=== PATIENT | female | born 1955 | race Caucasian/White ===

== ENCOUNTER → 2017-03-11 16:14 | Outpatient (CLI) | payer OTHER ==
[~2017-03-11] VITALS: Ht 152.4 cm; Wt 99.3 kg
[~2017-03-11 16:14] MED LIST: AVANDIA4 MG PO; CATAFLAM50 MG PO; CIPRO HC OTIC S10 ML OT; CYMBALTA30 MG PO; CYMBALTA60 MG; DECADRON P4 MG/ML-1M IH; DEMEBORO OTIC DROPS OT; DICY20TA PO; DURICEF 500 MG CAPSULE PO; FLEXERIL 10MG PO; FLEXERIL10 MG PO; FLOXIN OT; GLUCOTROL10 MG PO; HUMALOG MI100 UNIT/2 SUBCUTANEO; HUMALOG MIX 75/10 ML SQ; HUMALOG100 U/ML SQ; METFORMIN HCL1000 MG; NEURONTIN300 MG PO; NEURONTIN600 MG PO; PENTOXIFYLLINE400 MG PO; PERCOCET 5-3251 EACH PO; PRINIVIL5 MG PO; TORADOL60 MG IM; TRAM1TAB PO; TRAM1TAB98 PO; VOLTAREM 50 MG PO; ZANTAC300 MG PO; ZOCOR40 MG PO
== END | disposition home or self-care (01) ==
LOC: PPHC 16:14
DX: K29.70 Gastritis, unspecified, without bleeding (principal); N23 Unspecified renal colic; N20.0 Calculus of kidney

== ENCOUNTER 2017-03-12 07:40 | Outpatient (CLI) | payer OTHER ==
[~2017-03-12 07:40] MED LIST changes: -PERCOCET 5-3251 EACH PO
[2017-03-13] MEDS ORDERED: PERCOCET 5-3251 EACH PO (13:04)
== END 2017-03-12 10:29 | disposition home or self-care (01) ==
LOC: LAB 07:40
DX: N20.0 Calculus of kidney (principal)

== ENCOUNTER 2017-03-12 07:42 | Outpatient (CLI) | payer OTHER ==
[2017-03-13] MEDS ORDERED: PERCOCET 5-3251 EACH PO (13:04)
== END 2017-03-12 10:32 | disposition home or self-care (01) ==
LOC: RAD 07:42
DX: N20.0 Calculus of kidney (principal)

== ENCOUNTER 2017-03-13 08:58 | Emergency (ER) | payer OTHER ==
[~2017-03-13] VITALS: Ht 162.6 cm; Wt 99.3 kg
[~2017-03-13 08:58] MED LIST changes: -PERCOCET 5-3251 EACH PO
[2017-03-13] MEDS ORDERED: PERCOCET 5-3251 EACH PO (13:04)
== END 2017-03-13 13:21 | disposition home or self-care (01) ==
LOC: ER 08:58
DX: N20.0 Calculus of kidney (principal); R10.32 Left lower quadrant pain

== ENCOUNTER → 2017-03-13 | Outpatient (CLI) | payer OTHER ==
[~2017-03-13] VITALS: Ht 152.4 cm; Wt 99.3 kg
[~2017-03-13] MED LIST changes: +PERCOCET 5-3251 EACH PO
== END | disposition home or self-care (01) ==
LOC: PPHC 07:35
DX: N20.1 Calculus of ureter (principal); N20.0 Calculus of kidney

== ENCOUNTER 2017-03-15 08:49 | Emergency (ER) | payer OTHER ==
[~2017-03-15] VITALS: Ht 162.6 cm; Wt 99.3 kg
[~2017-03-15 08:49] MED LIST changes: +PERCOCET 5-3251 EACH PO
== END 2017-03-15 14:11 | disposition home or self-care (01) ==
LOC: ER 08:49
DX: R10.32 Left lower quadrant pain (principal)

== ENCOUNTER → 2017-03-20 | Outpatient (CLI) | payer OTHER | END | disposition home or self-care (01) | LOC: MRI 12:21 | DX: M43.17 Spondylolisthesis, lumbosacral region (principal) | CPT/HCPCS: 72148 ==

== ENCOUNTER → 2017-03-21 | Outpatient (CLI) | payer OTHER ==
[~2017-03-21] VITALS: Ht 152.4 cm; Wt 99.3 kg
[~2017-03-21] MED LIST changes: +GABAPENTIN300 MG PO
== END | disposition home or self-care (01) ==
LOC: PPHC 09:10
DX: M54.5 Low back pain (principal)

== ENCOUNTER 2017-08-21 08:05 | Outpatient (CLI) | payer OTHER ==
[~2017-08-21 08:05] MED LIST changes: +GABAPENTIN600 MG PO; +LYRICA50 MG PO
== END 2017-08-21 08:40 | disposition home or self-care (01) ==
LOC: LAB 08:05
DX: E11.9 Type 2 diabetes mellitus without complications (principal); I10 Essential (primary) hypertension; Z11.3 Encounter for screening for infections with a predominantly sexual mode of transmission

== ENCOUNTER → 2018-11-03 | Outpatient (CLI) | payer OTHER | END | disposition home or self-care (01) | LOC: MRI 07:15 | DX: M25.512 Pain in left shoulder (principal); M25.511 Pain in right shoulder; M25.561 Pain in right knee; M54.5 Low back pain; N64.4 Mastodynia | CPT/HCPCS: 72141 ==

== ENCOUNTER → 2019-02-20 | Outpatient (CLI) | payer OTHER | END | disposition home or self-care (01) | LOC: RAD 08:10 | DX: M25.572 Pain in left ankle and joints of left foot (principal) ==

== ENCOUNTER 2019-03-09 06:51 | Emergency (ER) | payer OTHER ==
[~2019-03-09] VITALS: Ht 162.6 cm; Wt 99.3 kg
[2019-03-09] MEDS ORDERED: PEPCID AC20 MG PO (07:45)
[2019-03-09] MEDS ORDERED: KETO10TA2 PO (07:45)
== END 2019-03-09 11:01 | disposition home or self-care (01) ==
LOC: ER 06:51
DX: M54.5 Low back pain (principal)

== ENCOUNTER 2019-03-22 08:40 | Emergency (ER) | payer OTHER ==
[~2019-03-22] VITALS: Ht 157.5 cm; Wt 99.3 kg
[~2019-03-22 08:40] MED LIST changes: +KETO10TA2 PO; +PEPCID AC20 MG PO
== END 2019-03-22 09:53 | disposition home or self-care (01) ==
LOC: ER 08:40
DX: M54.5 Low back pain (principal); E11.40 Type 2 diabetes mellitus with diabetic neuropathy, unspecified

== ENCOUNTER 2019-06-25 10:30 | Outpatient (CLI) | payer OTHER | END 2019-06-25 12:21 | disposition home or self-care (01) | LOC: MRI 10:30 | DX: M25.561 Pain in right knee (principal) | CPT/HCPCS: 73721 ==

== ENCOUNTER 2019-09-28 08:40 | Outpatient (CLI) | payer OTHER | END 2019-09-28 08:46 | disposition home or self-care (01) | LOC: LAB 08:40 | PROVIDERS: ATTEND General Practice | DX: U07.1 COVID-19 (principal); J11.1 Influenza due to unidentified influenza virus with other respiratory manifestations; R51 Headache; Z20.828 Contact with and (suspected) exposure to other viral communicable diseases; Z11.59 Encounter for screening for other viral diseases; I10 Essential (primary) hypertension ==

== ENCOUNTER 2019-11-10 08:00 | Outpatient (CLI) | payer OTHER | END 2019-11-10 15:00 | disposition home or self-care (01) | LOC: PPH VACUNA 08:00 | DX: Z23 Encounter for immunization (principal) ==

== ENCOUNTER 2019-11-13 08:50 | Emergency (ER) | payer OTHER ==
[~2019-11-13] VITALS: Ht 162.6 cm; Wt 113.4 kg
[2019-11-13] MEDS ORDERED: ZESTRIL20 MG PO (08:57)
== END 2019-11-13 11:52 | disposition home or self-care (01) ==
LOC: ER 08:50
DX: B34.9 Viral infection, unspecified (principal); Z20.828 Contact with and (suspected) exposure to other viral communicable diseases

== ENCOUNTER 2019-12-31 13:09 | Emergency (ER) | payer OTHER ==
[~2019-12-31] VITALS: Ht 162.6 cm; Wt 106.6 kg
[~2019-12-31 13:09] MED LIST changes: +ZESTRIL20 MG PO
== END 2019-12-31 15:50 | disposition home or self-care (01) ==
LOC: ER 13:09
DX: E11.65 Type 2 diabetes mellitus with hyperglycemia (principal); Z20.828 Contact with and (suspected) exposure to other viral communicable diseases

== ENCOUNTER 2020-01-19 13:27 | Outpatient (CLI) | payer OTHER | END 2020-01-19 13:40 | disposition home or self-care (01) | LOC: MAMO-SONO 13:27 | PROVIDERS: ATTEND Radiology Diagnostic Radiology | DX: Z12.31 Encounter for screening mammogram for malignant neoplasm of breast (principal); N64.59 Other signs and symptoms in breast ==

== ENCOUNTER 2020-02-03 13:00 | Outpatient (CLI) | payer OTHER | END 2020-02-03 13:12 | disposition home or self-care (01) | LOC: NUCLEAR 13:00 | PROVIDERS: ATTEND Internal Medicine Cardiovascular Disease | DX: M81.0 Age-related osteoporosis without current pathological fracture (principal); E55.9 Vitamin D deficiency, unspecified ==

== ENCOUNTER 2020-02-08 07:55 | Outpatient (CLI) | payer OTHER | END 2020-02-08 08:00 | disposition home or self-care (01) | LOC: LAB 07:55 | PROVIDERS: ATTEND Internal Medicine Cardiovascular Disease | DX: I10 Essential (primary) hypertension (principal); E11.9 Type 2 diabetes mellitus without complications; E03.8 Other specified hypothyroidism; E78.2 Mixed hyperlipidemia; E55.9 Vitamin D deficiency, unspecified ==

== ENCOUNTER 2020-02-11 05:03 | Emergency (ER) | payer OTHER ==
[~2020-02-11] VITALS: Ht 157.5 cm; Wt 106.6 kg
[2020-02-11] MEDS ORDERED: TORADOL60 MG IM (07:28)
[2020-02-11] MEDS ORDERED: NORFLEX100MG PO (07:28)
[2020-02-11] MEDS ORDERED: MOBIC15 MG PO (07:28)
== END 2020-02-11 07:50 | disposition home or self-care (01) ==
LOC: ER 05:03
DX: M62.838 Other muscle spasm (principal); M54.5 Low back pain

== ENCOUNTER → 2020-05-30 09:08 | Outpatient (CLI) | payer OTHER ==
[~2020-05-30 09:08] MED LIST changes: +CYCLOBENZAPRINE10 MG PO; +DICLOFENAC POTA50 MG PO; +MOBIC15 MG PO; +NORFLEX100MG PO
== END | disposition home or self-care (01) ==
LOC: PPH VACUNA 09:08
DX: Z23 Encounter for immunization (principal)

== ENCOUNTER → 2020-09-28 | Emergency (ER) | payer OTHER ==
[~2020-09-28] VITALS: Ht 160 cm; Wt 106.6 kg
[~2020-09-28] MED LIST changes: +MORGIDOX100 MG PO; +MUPIROCIN22 GM TOP; +NABUMETONE750 MG PO; +TIZANIDINE HCL4 MG PO; +ZANAFLEX4 M1 PO
== END | disposition home or self-care (01) ==
LOC: ER 13:12
DX: M54.5 Low back pain (principal); L03.116 Cellulitis of left lower limb

== ENCOUNTER 2021-01-10 09:40 | Emergency (ER) | payer OTHER ==
[~2021-01-10] VITALS: Ht 160 cm; Wt 105.7 kg
[2021-01-10] MEDS ORDERED: PENTOXIFYLLINE400 MG (10:18)
[2021-01-10] MEDS ORDERED: ORPHENADRINE C100 MG PO (12:57)
[2021-01-10] MEDS ORDERED: DICLOFENAC POTA50 MG PO (12:57)
== END 2021-01-10 13:48 ==
LOC: ER 09:40
DX: S19.80XA Other specified injuries of unspecified part of neck, initial encounter (principal); S99.811A Other specified injuries of right ankle, initial encounter; S49.82XA Other specified injuries of left shoulder and upper arm, initial encounter; W10.8XXA Fall (on) (from) other stairs and steps, initial encounter; Y93.18 Activity, surfing, windsurfing and boogie boarding; Y92.832 Beach as the place of occurrence of the external cause; Y99.8 Other external cause status

== ENCOUNTER 2021-01-23 09:48 | Outpatient (CLI) | payer OTHER ==
[~2021-01-23 09:48] MED LIST changes: +ORPHENADRINE C100 MG PO; +PENTOXIFYLLINE400 MG
== END 2021-01-23 15:00 | disposition home or self-care (01) ==
LOC: EDBD 09:48 → LAB 09:48
PROVIDERS: ATTEND Internal Medicine Cardiovascular Disease
DX: I10 Essential (primary) hypertension (principal); E11.9 Type 2 diabetes mellitus without complications; E03.8 Other specified hypothyroidism; E78.2 Mixed hyperlipidemia

== ENCOUNTER 2021-01-26 08:00 | Outpatient (CLI) | payer OTHER | END 2021-01-26 08:30 | disposition home or self-care (01) | LOC: PPH VACUNA 08:00 | PROVIDERS: ATTEND Emergency Medicine Pediatric Emergency Medicine | DX: Z23 Encounter for immunization (principal) ==

== ENCOUNTER 2021-06-19 14:21 | Emergency (ER) | payer OTHER ==
[~2021-06-19] VITALS: Ht 162.6 cm; Wt 75.3 kg
== END 2021-06-19 17:36 | disposition home or self-care (01) ==
LOC: ER 14:21
DX: M54.30 Sciatica, unspecified side (principal); I10 Essential (primary) hypertension; E11.9 Type 2 diabetes mellitus without complications; Z79.84 Long term (current) use of oral hypoglycemic drugs

== ENCOUNTER 2022-08-23 10:19 | Outpatient (CLI) | payer OTHER | END 2022-08-23 10:33 | disposition home or self-care (01) | LOC: TOM 10:19 | PROVIDERS: ATTEND Internal Medicine Cardiovascular Disease | DX: M12.9 Arthropathy, unspecified (principal); J44.9 Chronic obstructive pulmonary disease, unspecified; J11.1 Influenza due to unidentified influenza virus with other respiratory manifestations; Z20.822 Contact with and (suspected) exposure to COVID-19 ==

== ENCOUNTER 2023-02-05 08:39 | Outpatient (CLI) | payer OTHER | END 2023-02-05 09:08 | disposition home or self-care (01) | LOC: SONOGRAMA 08:39 | PROVIDERS: ATTEND Specialist/Technologist, Other Nephrology | DX: M25.551 Pain in right hip (principal); S76.811A Strain of other specified muscles, fascia and tendons at thigh level, right thigh, initial encounter; R10.9 Unspecified abdominal pain; N18.30 Chronic kidney disease, stage 3 unspecified; R31.9 Hematuria, unspecified ==

== ENCOUNTER 2023-02-05 11:10 | Outpatient (CLI) | payer OTHER | END 2023-02-05 13:48 | disposition home or self-care (01) | LOC: EKG 11:10 | PROVIDERS: ATTEND Specialist/Technologist, Other Nephrology | DX: I12.9 Hypertensive chronic kidney disease with stage 1 through stage 4 chronic kidney disease, or unspecified chronic kidney disease (principal); N18.2 Chronic kidney disease, stage 2 (mild) ==

== ENCOUNTER 2023-04-26 10:52 | Outpatient (CLI) | payer OTHER | END 2023-04-26 10:57 | disposition home or self-care (01) | LOC: MRI 10:52 | DX: M54.51 Vertebrogenic low back pain (principal) | CPT/HCPCS: 72148 ==

== ENCOUNTER 2023-04-30 10:22 | Outpatient (CLI) | payer OTHER | END 2023-04-30 10:23 | disposition home or self-care (01) | LOC: SONOGRAMA 10:22 | PROVIDERS: ATTEND Internal Medicine Hematology & Oncology | DX: E04.2 Nontoxic multinodular goiter (principal); D51.3 Other dietary vitamin B12 deficiency anemia; N18.31 Chronic kidney disease, stage 3a; D63.1 Anemia in chronic kidney disease; E03.9 Hypothyroidism, unspecified; E11.9 Type 2 diabetes mellitus without complications; E16.2 Hypoglycemia, unspecified; E11.22 Type 2 diabetes mellitus with diabetic chronic kidney disease; E11.40 Type 2 diabetes mellitus with diabetic neuropathy, unspecified; E11.39 Type 2 diabetes mellitus with other diabetic ophthalmic complication ==

== ENCOUNTER 2023-06-06 10:22 | Emergency (ER) | payer OTHER ==
[~2023-06-06] VITALS: Ht 160 cm; Wt 96.6 kg
[2023-06-06] MEDS ORDERED: MEPERIDINE HCL/PF 50 MG/ML VIAL IM STA (11:54)
[2023-06-06] MEDS ORDERED: ORPHENADRINE CITRATE 30 MG/ML AMPUL IM STA (14:12)
[2023-06-06] MEDS ORDERED: DEXAMETHASONE SODIUM PHOSPHATE 4 MG/ML VIAL IM STA (14:12)
[2023-06-06] MEDS ORDERED: KETOROLAC TROMETHAMINE 30 MG VIAL IM ONE (14:15)
[2023-06-06] MEDS ORDERED: CYCLOBENZAPRINE10 MG PO (16:06)
== END 2023-06-06 16:35 | disposition home or self-care (01) ==
LOC: ER 10:23
DX: M54.2 Cervicalgia (principal)
CPT/HCPCS: 96372; 99282; J1100; J1885; J2360; J3490

== ENCOUNTER 2023-09-19 11:29 | Outpatient (CLI) | payer OTHER | END 2023-09-19 11:37 | disposition home or self-care (01) | LOC: RAD 11:29 | PROVIDERS: ATTEND Orthopaedic Surgery Orthopaedic Surgery of the Spine | DX: M25.511 Pain in right shoulder (principal); M48.062 Spinal stenosis, lumbar region with neurogenic claudication ==

== ENCOUNTER 2023-10-31 10:19 | Outpatient (CLI) | payer OTHER | END 2023-10-31 10:25 | disposition home or self-care (01) | LOC: TOM 10:19 | PROVIDERS: ATTEND Orthopaedic Surgery Orthopaedic Surgery of the Spine | DX: M48.062 Spinal stenosis, lumbar region with neurogenic claudication (principal) ==

== ENCOUNTER 2023-12-05 11:55 | Outpatient (CLI) | payer OTHER ==
[2023-12-05 12:47] LABS: HEMATOCRIT 30.6 % (36.0-45.00); HEMOGLOBIN 10.2 g/dL (12.0-15.00); MEAN CELL VOLUME 91.1 fL (80.00-100.00); MEAN CORPUSCULAR HEMOGLOBIN 30.5 pg (27.00-32.0); MEAN CORPUSCULAR HGB CONC 33.5 g/dl (32.0-36.0); PLATELET COUNT 370 K/uL (150-450); RED BLOOD COUNT 3.36 M/uL (4.00-6.00); RED CELL DISTRIBUTION WIDTH 15.4 % (11.5-14.5)
[2023-12-05 13:39] LABS: BILIRUBIN TOTAL 0.22 mg/dL (0.3-1.2); CALCIUM 9.3 mg/dL (8.5-10.1); CREATININE SERUM 1.5 mg/dL (0.55-1.02); GFR 34.64; GLOBULINA 4.2 G/DL (2.4-3.5); POTASSIUM 5.31 mEq/L (3.5-5.1); T4 FREE 0.83 NG/ML (0.76-1.46); TOTAL PROTEIN 7.2 gm/dL (6.4-8.2); TSH 3.48 uIU/mL (0.358-3.74)
[2023-12-05 13:52] LABS: FOLIC ACID 19.41 ng/ml (4.78-20)
[2023-12-06 09:24] LABS: MANUAL PLATELET COUNT 536
[2023-12-06 09:26] LABS: PLATELET ESTIMATE INCREASED (NORMAL)
== END 2023-12-05 12:00 | disposition home or self-care (01) ==
LOC: LAB 11:55
PROVIDERS: ATTEND Internal Medicine Hematology & Oncology
DX: D50.8 Other iron deficiency anemias (principal); D51.3 Other dietary vitamin B12 deficiency anemia; E06.3 Autoimmune thyroiditis; E06.5 Other chronic thyroiditis; N18.31 Chronic kidney disease, stage 3a; D63.1 Anemia in chronic kidney disease; E03.8 Other specified hypothyroidism; E11.9 Type 2 diabetes mellitus without complications; E78.2 Mixed hyperlipidemia; E11.22 Type 2 diabetes mellitus with diabetic chronic kidney disease; E11.40 Type 2 diabetes mellitus with diabetic neuropathy, unspecified; E11.39 Type 2 diabetes mellitus with other diabetic ophthalmic complication; D51.1 Vitamin B12 deficiency anemia due to selective vitamin B12 malabsorption with proteinuria

== ENCOUNTER 2024-01-03 10:29 | Outpatient (CLI) | payer OTHER | END 2024-01-03 10:31 | disposition home or self-care (01) | LOC: MRI 10:29 | PROVIDERS: ATTEND Orthopaedic Surgery Orthopaedic Surgery of the Spine | DX: M48.02 Spinal stenosis, cervical region (principal) | CPT/HCPCS: 72141 ==

== ENCOUNTER 2024-09-03 08:09 | Outpatient (CLI) | payer OTHER | END 2024-09-03 08:14 | disposition home or self-care (01) | LOC: SONOGRAMA 08:09 | PROVIDERS: ATTEND Internal Medicine Hematology & Oncology | DX: R10.9 Unspecified abdominal pain (principal); N18.30 Chronic kidney disease, stage 3 unspecified; R31.9 Hematuria, unspecified; D50.8 Other iron deficiency anemias; D51.3 Other dietary vitamin B12 deficiency anemia; E06.3 Autoimmune thyroiditis; N18.31 Chronic kidney disease, stage 3a; D63.1 Anemia in chronic kidney disease; E03.8 Other specified hypothyroidism; E11.9 Type 2 diabetes mellitus without complications; E78.2 Mixed hyperlipidemia; E11.22 Type 2 diabetes mellitus with diabetic chronic kidney disease; E11.40 Type 2 diabetes mellitus with diabetic neuropathy, unspecified; E11.39 Type 2 diabetes mellitus with other diabetic ophthalmic complication; D51.1 Vitamin B12 deficiency anemia due to selective vitamin B12 malabsorption with proteinuria ==

== ENCOUNTER 2024-11-11 10:13 | Outpatient (CLI) | payer OTHER | END 2024-11-11 10:16 | disposition home or self-care (01) | LOC: RAD 10:13 | PROVIDERS: ATTEND Internal Medicine Hematology & Oncology | DX: D50.8 Other iron deficiency anemias (principal); D51.3 Other dietary vitamin B12 deficiency anemia; E03.5 Myxedema coma; E06.3 Autoimmune thyroiditis; N18.31 Chronic kidney disease, stage 3a; D63.1 Anemia in chronic kidney disease; E03.8 Other specified hypothyroidism; E11.9 Type 2 diabetes mellitus without complications; E78.2 Mixed hyperlipidemia; E11.22 Type 2 diabetes mellitus with diabetic chronic kidney disease; E11.40 Type 2 diabetes mellitus with diabetic neuropathy, unspecified; E11.39 Type 2 diabetes mellitus with other diabetic ophthalmic complication; D51.1 Vitamin B12 deficiency anemia due to selective vitamin B12 malabsorption with proteinuria ==

== ENCOUNTER 2024-11-18 11:44 | Inpatient (IN) | payer OTHER ==
[~2024-11-18] VITALS: Ht 175.3 cm; Wt 90.7 kg
--- NOTE | 2024-11-18 12:20 | NUR ---
PACIENTE ALERTA Y ORIENTADA X3 QUIEN REFIERE VENIR HOY POR DIARREA X10 DESDE HACE 3 GASCA ESTAR CON DICHO EVENTO. REFIERE MALESTAR ANDOMINAL.
[2024-11-18] MEDS ORDERED: FAMOTIDINE/PF 20 MG in 0.9 % SODIUM CHLORIDE 8 ML IV PUSH ONE (12:45)
[2024-11-18] MEDS ORDERED: 0.9 % SODIUM CHLORIDE 1,000 ML IV SCH ×2 (12:45→20:30)
[2024-11-18] MEDS ORDERED: ONDANSETRON HCL 4 MG in 0.9 % SODIUM CHLORIDE 50 ML IV ONE (12:45)
[2024-11-18] MEDS ORDERED: ACETAMINOPHEN 500 MG GEL..CAP PO PRN (12:45)
[2024-11-18] MEDS ORDERED: MORPHINE SULFATE 2 MG/ML SYRINGE IV ONE (13:00)
[2024-11-18] MEDS ORDERED: ACETAMINOPHEN 500 MG GEL..CAP PO ONE (13:20)
[2024-11-18] MEDS ORDERED: ONDANSETRON HCL 2 MG/ML VIAL ONE (13:20)
[2024-11-18 14:03] LABS: BASO % 0.2 % (0.1-1.2); EOS # 0.13 (0.04-0.54); EOS % 1.3 % (0.7-7.0); LYMPH # 1.75 (1.18-3.74); LYMPH % 17.7 % (19.3-53.1); MEAN PLATELET VOLUME 9.10 fl (9.4-12.4); MONO # 0.48 (0.24-0.82); MONO % 4.9 % (4.7-12.5); NEUT # 7.49 (1.56-6.13); NEUT % 75.8 % (34.0-71.1); RED CELL DISTRIBUTION WIDTH 14.3 % (11.6-14.4)
--- NOTE | 2024-11-18 14:21 | NUR ---
SE ORIENTA PTE SOBRE TX MEDICO Y PTE REFIERE ENTENDER. SE ADMINISTRAN MEDICAMENTOS Y SE WILMA MUESTRAS MAVERICK ORDEN MEDICA BAJO MEDIDAS ASEPTICAS.
[2024-11-18 14:57] LABS: ALT/SGPT 16.0 U/L (12-78); AST/SGOT 14.0 U/L (15-37); BILIRUBIN TOTAL 0.22 mg/dL (0.3-1.2); BUN CREA RATIO 12.0 (7.0-25.0); CREATININE SERUM 2.45 mg/dL (0.55-1.02); GFR 19.6; GLOBULINA 4.3 G/DL (2.4-3.5); GLUCOSE FASTING 85.0 mg/dL (65-100); OSMOLALITY SERUM 286.0 MOSM/KG (275-295)
[2024-11-18] MEDS ORDERED: 0.9 % SODIUM CHLORIDE 1,000 ML IV ONE (16:45)
[2024-11-18] MEDS ORDERED: MORPHINE SULFATE 4 MG/ML CARTRIDGE IV ONE (17:30)
[2024-11-18 17:37] LABS: BUN CREA RATIO 12.0 (7.0-25.0); CREATININE SERUM 2.37 mg/dL (0.55-1.02); GFR 20.37; GLUCOSE FASTING 63.0 mg/dL (65-100); OSMOLALITY SERUM 287.0 MOSM/KG (275-295)
[2024-11-18] MEDS ORDERED: INSULIN LISPRO 1,000 UNIT/10 ML UNITS SUBCUTANEO PRN (20:15)
[2024-11-18] MEDS ORDERED: DEXTROSE 50 % IN WATER 0.5 G/ML DISP.SYRIN IV PRN (20:15)
[2024-11-18] MEDS ORDERED: ENOXAPARIN SODIUM 30 MG/0.3 ML SYRINGE SUBCUTANEO SCH (20:25)
[2024-11-18] MEDS ORDERED: MORPHINE SULFATE 4 MG/ML CARTRIDGE IV PRN (20:45)
[2024-11-18] MEDS ORDERED: ONDANSETRON HCL 4 MG in 0.9 % SODIUM CHLORIDE 50 ML IV PRN (20:45)
[2024-11-18] MEDS ORDERED: AMLODIPINE BESYLATE 5 MG TABLET PO PRN (20:45)
[2024-11-18 20:50] VITALS: BP 128/53; O2SAT 98
[2024-11-18] MEDS ORDERED: CIPROFLOXACIN IN 5 % DEXTROSE 200 ML IV SCH (21:00)
[2024-11-18 21:37] LABS: URINE APPEARANCE Cloudy; URINE BILIRRUBIN Negative (NEGATIVE); URINE BLOOD Moderate; URINE COLOR Yellow; URINE KETONE Trace (NEGATIVE); URINE LEUKOCYTE Small; URINE NITRATE Negative; URINE PROTEIN >=1000 (NEGATIVE); URINE UROBILINOGEN 0.2 E.U./dl
[2024-11-18 21:40] LABS: URINE BACTERIA 4556.3 uL (0.0-1933); URINE CAST 7.47 uL (0.0-1.40); URINE EPITHELIAL CELLS 42.7 uL (0.0-38.8); URINE RBC 10.8 uL (0.0-20.8); URINE WBC 83.6 uL (0.0-23.2)
[2024-11-18 22:08] LABS: URINE GLUCOSE 250 MG/DL (NEGATIVE)
[2024-11-18 22:09] LABS: TYPE CELLS SQUAMOUS; URINE CRYSTALS FEW /HPF; URINE MUCUS SCANT
[2024-11-18 22:23] LABS: ob POSITIVE (NEGATIVE)
[2024-11-18 22:26] LABS: INR 1.05
[2024-11-19 01:00] VITALS: BP 136/70; O2SAT 98
[2024-11-19 03:03] VITALS: BP 120/68; O2SAT 97
[2024-11-19 08:44] VITALS: BP 156/75; O2SAT 99
[2024-11-19] MEDS ORDERED: CITRIC ACID/SODIUM CITRATE 30 ML BLIST.PACK PO SCH (09:00)
[2024-11-19] MEDS ORDERED: AMINO ACIDS/PROTEIN HYDROLYS 30 ML BLIST.PACK PO SCH (13:00)
[2024-11-19 13:45] LABS: ALT/SGPT 17.0 U/L (12-78); AST/SGOT 20.0 U/L (15-37); BILIRUBIN TOTAL 0.28 mg/dL (0.3-1.2); BUN CREA RATIO 12.0 (7.0-25.0); CREATININE SERUM 2.74 mg/dL (0.55-1.02); GFR 17.23; GLOBULINA 4.1 G/DL (2.4-3.5); OSMOLALITY SERUM 293.0 MOSM/KG (275-295)
[2024-11-19 13:49] LABS: GLUCOSE FASTING 271.0 mg/dL (65-100)
[2024-11-19 17:46] VITALS: BP 136/60; O2SAT 97
[2024-11-19] MEDS ORDERED: CEFTRIAXONE SODIUM 2,000 MG VIAL IV SCH (21:00)
[2024-11-20] VITALS (11 sets, daily range): BP systolic 111–156; BP diastolic 59–74; O2SAT 85–99
[2024-11-20 06:04] LABS: BASO % 0.5 % (0.1-1.2); EOS # 0.01 (0.04-0.54); EOS % 0.1 % (0.7-7.0); LYMPH # 1.10 (1.18-3.74); LYMPH % 11.0 % (19.3-53.1); MEAN PLATELET VOLUME 10.00 fl (9.4-12.4); MONO # 0.81 (0.24-0.82); MONO % 8.1 % (4.7-12.5); NEUT # 8.03 (1.56-6.13); NEUT % 79.9 % (34.0-71.1); RED CELL DISTRIBUTION WIDTH 14.6 % (11.6-14.4)
[2024-11-20 07:32] LABS: ALT/SGPT 19.0 U/L (12-78); AST/SGOT 23.0 U/L (15-37); BILIRUBIN TOTAL 0.22 mg/dL (0.3-1.2); BUN CREA RATIO 12.0 (7.0-25.0); CREATININE SERUM 2.93 mg/dL (0.55-1.02); GFR 15.95; GLOBULINA 3.8 G/DL (2.4-3.5)
[2024-11-20 07:43] LABS: OSMOLALITY SERUM 292.0 MOSM/KG (275-295)
[2024-11-20 07:44] LABS: CKMB 11.6 NG/ML (0.5-3.6); GLUCOSE FASTING 251.0 mg/dL (65-100)
[2024-11-20] MEDS ORDERED: LEVALBUTEROL HCL 0.63 MG/3 ML SOLUTION IH SCH (09:00)
[2024-11-20] MEDS ORDERED: NITROGLYCERIN IN 5 % DEXTROSE 50 MG/250 ML BOTTLE IV ONE (09:57)
[2024-11-20] MEDS ORDERED: NITROGLYCERIN IN 5 % DEXTROSE 50 MG/250 ML KIT IV SCH (10:30)
[2024-11-20] MEDS ORDERED: NITROGLYCERIN IN 5 % DEXTROSE 250 ML IV SCH (10:45)
[2024-11-20] MEDS ORDERED: SOD FERRIC GLUC COMPLX/SUCROSE 62.5 MG/5 ML AMPUL IV STA (14:30)
[2024-11-20] MEDS ORDERED: CLOPIDOGREL BISULFATE 75 MG TABLET PO NR (15:30)
[2024-11-20] MEDS ORDERED: ASPIRIN 81 MG TABLET.EC PO NR (15:30)
[2024-11-20] MEDS ORDERED: MORPHINE SULFATE 4 MG/ML CARTRIDGE IV PRN (16:43)
[2024-11-20] MEDS ORDERED: ATORVASTATIN CALCIUM 40 MG TABLET PO SCH (17:00)
[2024-11-20] MEDS ORDERED: METOPROLOL TARTRATE 25 MG TABLET PO SCH (17:00)
[2024-11-20] MEDS ORDERED: SODIUM POLYSTYRENE SULFONATE 15 G/4 TSP TSP PO NR (18:30)
[2024-11-20] MEDS ORDERED: IRBESARTAN 150 MG TABLET PO SCH (21:00)
[2024-11-20 21:08] LABS: MYCOPLASMA PNEUMONIAE IGM NON REACTIVE (NO REACTIVE)
[2024-11-21] VITALS (22 sets, daily range): BP systolic 92–146; BP diastolic 39–91; O2SAT 93–100
[2024-11-21] MEDS ORDERED: LEVOTHYROXINE SODIUM 25 MCG TABLET PO SCH (06:00)
[2024-11-21 06:49] LABS: ABG PO2 66.3 mmHg (80-100); BICARBONATE 10.8 mmol/l (23-25)
[2024-11-21 07:21] LABS: ABG PH 7.149 (7.35-7.45)
[2024-11-21 07:22] LABS: o2 50 %
[2024-11-21 07:27] LABS: ALT/SGPT 19.0 U/L (12-78); AST/SGOT 28.0 U/L (15-37); BILIRUBIN TOTAL 0.27 mg/dL (0.3-1.2); BUN CREA RATIO 12.0 (7.0-25.0); CREATININE SERUM 3.59 mg/dL (0.55-1.02); GFR 12.61; GLOBULINA 3.5 G/DL (2.4-3.5)
[2024-11-21 07:45] LABS: GLUCOSE FASTING 332.0 mg/dL (65-100); OSMOLALITY SERUM 292.0 MOSM/KG (275-295)
[2024-11-21] MEDS ORDERED: ASPIRIN 81 MG TABLET.EC PO SCH (09:00)
[2024-11-21] MEDS ORDERED: CLOPIDOGREL BISULFATE 75 MG TABLET PO SCH (09:00)
[2024-11-21] MEDS ORDERED: GABAPENTIN 300 MG CAPSULE PO SCH (09:00)
[2024-11-21] MEDS ORDERED: SOD FERRIC GLUC COMPLX/SUCROSE 62.5 MG/5 ML AMPUL IV SCH (09:00)
[2024-11-21 10:27] LABS: ABG PH 7.180 (7.35-7.45)
[2024-11-21 10:28] LABS: ABG PO2 150.1 mmHg (80-100); BICARBONATE 10.0 mmol/l (23-25)
[2024-11-21 10:29] LABS: o2 100 %
[2024-11-21 10:29] LABS: BASO % 0.2 % (0.1-1.2); EOS # 0.03 (0.04-0.54); EOS % 0.2 % (0.7-7.0); LYMPH # 1.67 (1.18-3.74); LYMPH % 10.2 % (19.3-53.1); MEAN PLATELET VOLUME 9.60 fl (9.4-12.4); MONO # 0.95 (0.24-0.82); MONO % 5.8 % (4.7-12.5); NEUT # 13.40 (1.56-6.13); NEUT % 82.3 % (34.0-71.1); RED CELL DISTRIBUTION WIDTH 14.7 % (11.6-14.4)
[2024-11-21] MEDS ORDERED: MORPHINE SULFATE 2 MG/ML SYRINGE IV ONE (11:00)
[2024-11-21] MEDS ORDERED: PROPOFOL 10,000 MCG/ML VIAL ONE ×2 (11:02→11:55)
[2024-11-21 11:14] LABS: ALT/SGPT 22.0 U/L (12-78); AST/SGOT 34.0 U/L (15-37); BILIRUBIN TOTAL 0.27 mg/dL (0.3-1.2); BUN CREA RATIO 12.0 (7.0-25.0); CREATININE SERUM 3.9 mg/dL (0.55-1.02); GFR 11.46; GLOBULINA 3.9 G/DL (2.4-3.5)
[2024-11-21 11:16] LABS: GLUCOSE FASTING 349.0 mg/dL (65-100); OSMOLALITY SERUM 286.0 MOSM/KG (275-295)
[2024-11-21] MEDS ORDERED: FentaNYL CITRATE/PF 1,000 MCG in 0.9 % SODIUM CHLORIDE 100 ML IV SCH (11:45)
[2024-11-21] MEDS ORDERED: NOREPINEPHRINE BITARTRATE 1 MG/ML AMPUL IV ONE (12:03)
[2024-11-21] MEDS ORDERED: PROPOFOL 100 ML IV SCH (12:15)
[2024-11-21] MEDS ORDERED: NOREPINEPHRINE BITARTRATE 4 MG in DEXTROSE 5 % IN WATER 250 ML IV SCH (12:15)
[2024-11-21] MEDS ORDERED: SODIUM BICARBONATE 50MEQ/50ML VIAL IV ONE ×2 (13:41→14:18)
[2024-11-21] MEDS ORDERED: DEXTROSE 5% IV SCH (13:45)
[2024-11-21] MEDS ORDERED: WATER IV SCH (13:45)
[2024-11-21] MEDS ORDERED: SODIUM BICARBONATE IV SCH ×2 (13:45→20:45)
[2024-11-21] MEDS ORDERED: SODIUM BICARBONATE IV STA (14:26)
[2024-11-21] MEDS ORDERED: DISP SYRIN IV STA (14:26)
[2024-11-21 15:00] LABS: ABG PH 7.097 (7.35-7.45); ABG PO2 247.4 mmHg (80-100); BICARBONATE 10.3 mmol/l (23-25); o2 100 %
[2024-11-21 16:39] LABS: ABG PH 7.187 (7.35-7.45); ABG PO2 98.3 mmHg (80-100); BICARBONATE 15.8 mmol/l (23-25)
[2024-11-21 16:40] LABS: o2 50 %
[2024-11-21] MEDS ORDERED: FUSION PLUS CA1 EACH PO (16:45)
[2024-11-21] MEDS ORDERED: FAMOTIDINE/PF 20 MG/2 ML VIAL IV SCH (17:00)
[2024-11-21] MEDS ORDERED: VANCOMYCIN HCL 5 MG/ML REDILUIDO IV SCH (17:00)
[2024-11-21] MEDS ORDERED: MEROPENEM 500 MG/VIAL VIAL IV SCH (17:00)
[2024-11-21] MEDS ORDERED: CHLORHEXIDINE GLUCONATE 15ML BRUSH KIT MM SCH (17:00)
[2024-11-21] MEDS ORDERED: POLYVINYL ALCOHOL 15 ML DROPS OP SCH (17:00)
[2024-11-21 17:26] LABS: INR 1.1
[2024-11-21 17:39] LABS: T4 FREE 1.02 NG/ML (0.76-1.46); TSH 1.78 uIU/mL (0.358-3.74)
[2024-11-21] MEDS ORDERED: PANTOPRAZOLE SODIUM 40 MG/VIAL VIAL IV STA (20:43)
[2024-11-21] MEDS ORDERED: SODIUM CHLORIDE 0.45% IV SCH (20:45)
[2024-11-21] MEDS ORDERED: DOXYCYCLINE HYCLATE 100MG IV SCH (21:00)
[2024-11-21] MEDS ORDERED: DOXYCYCLINE HYCLATE 100MG IV ONE (21:17)
[2024-11-21 23:03] LABS: ABG PH 7.312 (7.35-7.45); ABG PO2 137.8 mmHg (80-100); BICARBONATE 16.0 mmol/l (23-25); o2 50 %
[2024-11-22] VITALS (17 sets, daily range): BP systolic 117–144; BP diastolic 6–69; O2SAT 98–100
[2024-11-22] MEDS ORDERED: SODIUM BICARBONATE 50MEQ/50ML VIAL IV ONE ×3 (01:40→21:24)
[2024-11-22] MEDS ORDERED: DOXYCYCLINE HYCLATE 100MG IV ONE ×2 (07:21→19:57)
[2024-11-22 08:27] LABS: ALT/SGPT 20.0 U/L (12-78); AST/SGOT 29.0 U/L (15-37); BILIRUBIN TOTAL 0.44 mg/dL (0.3-1.2); BUN CREA RATIO 14.0 (7.0-25.0); CREATININE SERUM 3.1 mg/dL (0.55-1.02); GFR 14.94; GLOBULINA 3.4 G/DL (2.4-3.5); GLUCOSE FASTING 215.0 mg/dL (65-100); LDH 241.0 U/L (84-246); OSMOLALITY SERUM 295.0 MOSM/KG (275-295)
[2024-11-22] MEDS ORDERED: SODIUM BICARBONATE IV SCH (08:30)
[2024-11-22] MEDS ORDERED: SODIUM CHLORIDE 0.45% IV SCH (08:30)
[2024-11-22 08:44] LABS: BASO % 0.3 % (0.1-1.2); EOS # 0.13 (0.04-0.54); EOS % 1.0 % (0.7-7.0); LYMPH # 1.67 (1.18-3.74); LYMPH % 13.3 % (19.3-53.1); MEAN PLATELET VOLUME 9.90 fl (9.4-12.4); MONO # 0.79 (0.24-0.82); MONO % 6.3 % (4.7-12.5); NEUT # 9.80 (1.56-6.13); NEUT % 77.8 % (34.0-71.1); RED CELL DISTRIBUTION WIDTH 14.8 % (11.6-14.4)
[2024-11-22] MEDS ORDERED: PANTOPRAZOLE SODIUM 40 MG/VIAL VIAL IV SCH (09:00)
[2024-11-22] MEDS ORDERED: CHLORHEXIDINE GLUCONATE 120 ML BOTTLE TOP ONE (09:13)
[2024-11-22 10:02] LABS: CREATINE CLEARANCE 31.9 ML/MIN (97-137); CREATININE SERUM 3.1 mg/dL (0.6-1.0)
[2024-11-22 10:05] LABS: BAND MAN 24.0 %; LYMPHOCYTE MAN 3.0 %; MONOCYTE MAN 6.0 %; NEUTROPHILS MAN 60.0 %
[2024-11-22 10:25] LABS: ABG PH 7.340 (7.35-7.45); ABG PO2 168.3 mmHg (80-100); BICARBONATE 17.0 mmol/l (23-25)
[2024-11-22 10:26] LABS: o2 50 %
[2024-11-22 18:09] LABS: BASO % 0.3 % (0.1-1.2); EOS # 0.31 (0.04-0.54); EOS % 2.7 % (0.7-7.0); LYMPH # 2.57 (1.18-3.74); LYMPH % 22.0 % (19.3-53.1); MEAN PLATELET VOLUME 9.30 fl (9.4-12.4); MONO # 0.87 (0.24-0.82); MONO % 7.4 % (4.7-12.5); NEUT # 7.71 (1.56-6.13); NEUT % 66.0 % (34.0-71.1); RED CELL DISTRIBUTION WIDTH 14.9 % (11.6-14.4)
[2024-11-22 18:11] LABS: BAND MAN 5.0 %; EOSINOPHIL MAN 1.0 %; LYMPHOCYTE MAN 14.0 %; METAMYELOCYTE 3.0 %; MONOCYTE MAN 4.0 %; NEUTROPHILS MAN 72.0 %
[2024-11-23] VITALS (14 sets, daily range): BP systolic 103–145; BP diastolic 49–80; O2SAT 94–100
[2024-11-23 06:43] LABS: BASO % 0.5 % (0.1-1.2); EOS # 0.36 (0.04-0.54); EOS % 3.3 % (0.7-7.0); LYMPH # 2.23 (1.18-3.74); LYMPH % 20.2 % (19.3-53.1); MEAN PLATELET VOLUME 9.20 fl (9.4-12.4); MONO # 0.87 (0.24-0.82); MONO % 7.9 % (4.7-12.5); NEUT # 7.28 (1.56-6.13); NEUT % 65.7 % (34.0-71.1); RED CELL DISTRIBUTION WIDTH 14.9 % (11.6-14.4)
[2024-11-23 07:14] LABS: ALT/SGPT 15.0 U/L (12-78); AST/SGOT 20.0 U/L (15-37); BILIRUBIN TOTAL 0.32 mg/dL (0.3-1.2); BUN CREA RATIO 20.0 (7.0-25.0); CREATININE SERUM 2.24 mg/dL (0.55-1.02); GFR 21.74; GLOBULINA 3.1 G/DL (2.4-3.5); GLUCOSE FASTING 191.0 mg/dL (65-100); OSMOLALITY SERUM 303.0 MOSM/KG (275-295)
[2024-11-23] MEDS ORDERED: DOXYCYCLINE HYCLATE 100MG IV ONE ×2 (08:17→18:57)
[2024-11-23] MEDS ORDERED: SODIUM BICARBONATE 50MEQ/50ML VIAL IV ONE (08:45)
[2024-11-23] MEDS ORDERED: SODIUM BICARBONATE IV SCH (09:00)
[2024-11-23] MEDS ORDERED: SODIUM CHLORIDE 0.45% IV SCH (09:00)
[2024-11-23] MEDS ORDERED: VANCOMYCIN HCL 5 MG/ML REDILUIDO IV SCH (09:45)
[2024-11-23 10:34] LABS: ABG PH 7.467 (7.35-7.45); ABG PO2 110.8 mmHg (80-100); BICARBONATE 23.3 mmol/l (23-25)
[2024-11-23 10:35] LABS: o2 40 %
[2024-11-23] MEDS ORDERED: SODIUM CHLORIDE 0.9% IV NR (11:00)
[2024-11-23] MEDS ORDERED: MAGNESIUM SULFATE IV NR (11:00)
[2024-11-23] MEDS ORDERED: RACEPINEPHRINE HCL 0.5 ML AMPUL IH NR (11:45)
[2024-11-23] MEDS ORDERED: ALBUTEROL SULFATE 3 ML/2.5 MG AMPUL.NEB IH NR (11:45)
[2024-11-23] MEDS ORDERED: LEVALBUTEROL HCL 0.63 MG/3 ML SOLUTION IH SCH (12:00)
[2024-11-23 12:23] LABS: ob POSITIVE (NEGATIVE)
[2024-11-23 13:09] LABS: ABG PH 7.378 (7.35-7.45)
[2024-11-23 13:10] LABS: ABG PO2 129.9 mmHg (80-100); BICARBONATE 21.8 mmol/l (23-25); o2 40 %
[2024-11-23 13:24] LABS: ABG PH 7.374 (7.35-7.45); ABG PO2 73.3 mmHg (80-100)
[2024-11-23 13:25] LABS: BICARBONATE 19.2 mmol/l (23-25); o2 40 %
[2024-11-23] MEDS ORDERED: DILTIAZEM HCL 125 MG in 0.9 % SODIUM CHLORIDE 100 ML IV SCH (14:00)
[2024-11-23] MEDS ORDERED: EPOETIN ALFA-EPBX 10,000 UNIT/ML VIAL (Retacrit) SUBCUTANEO NR (19:45)
[2024-11-24] VITALS (22 sets, daily range): BP systolic 97–141; BP diastolic 52–77; O2SAT 95–100
[2024-11-24 06:46] LABS: BASO % 0.4 % (0.1-1.2); EOS # 0.22 (0.04-0.54); EOS % 1.7 % (0.7-7.0); LYMPH # 1.85 (1.18-3.74); LYMPH % 14.4 % (19.3-53.1); MEAN PLATELET VOLUME 9.50 fl (9.4-12.4); MONO # 1.24 (0.24-0.82); MONO % 9.7 % (4.7-12.5); NEUT # 9.09 (1.56-6.13); NEUT % 70.8 % (34.0-71.1); RED CELL DISTRIBUTION WIDTH 15.6 % (11.6-14.4)
[2024-11-24 07:08] LABS: URINE APPEARANCE Cloudy; URINE BILIRRUBIN Negative (NEGATIVE); URINE BLOOD Moderate; URINE COLOR Yellow; URINE GLUCOSE Negative (NEGATIVE); URINE KETONE 15 (NEGATIVE); URINE LEUKOCYTE Small; URINE NITRATE Negative; URINE UROBILINOGEN 0.2 E.U./dl
[2024-11-24 07:09] LABS: URINE BACTERIA 164.4 uL (0.0-1933); URINE CAST 9.09 uL (0.0-1.40); URINE EPITHELIAL CELLS 26.9 uL (0.0-38.8); URINE RBC 15.2 uL (0.0-20.8); URINE WBC 133.9 uL (0.0-23.2)
[2024-11-24] MEDS ORDERED: DOXYCYCLINE HYCLATE 100MG IV ONE ×2 (07:19→20:14)
[2024-11-24 07:28] LABS: ALT/SGPT 17.0 U/L (12-78); AST/SGOT 26.0 U/L (15-37); BILIRUBIN TOTAL 0.48 mg/dL (0.3-1.2); BUN CREA RATIO 21.0 (7.0-25.0); CREATININE SERUM 1.89 mg/dL (0.55-1.02); GFR 26.45; GLOBULINA 3.4 G/DL (2.4-3.5); GLUCOSE FASTING 199.0 mg/dL (65-100); OSMOLALITY SERUM 309.0 MOSM/KG (275-295)
[2024-11-24 08:03] LABS: URINE PROTEIN 300 (NEGATIVE)
[2024-11-24 08:05] LABS: URINE CRYSTALS MODERATE /HPF
[2024-11-24] MEDS ORDERED: CITRIC ACID/SODIUM CITRATE 30 ML BLIST.PACK PO SCH (09:00)
[2024-11-24] MEDS ORDERED: INSULIN NPH HUM/REG INSULIN HM 1,000 UNIT/10 ML UNITS SUBCUTANEO SCH (09:00)
[2024-11-24 11:12] LABS: ABG PH 7.350 (7.35-7.45); ABG PO2 104.0 mmHg (80-100); BICARBONATE 19.3 mmol/l (23-25)
[2024-11-24 11:17] LABS: o2 40 %
[2024-11-25] VITALS (9 sets, daily range): BP systolic 102–141; BP diastolic 50–71; O2SAT 96–100
[2024-11-25 07:09] LABS: BUN CREA RATIO 30.0 (7.0-25.0); CREATININE SERUM 1.53 mg/dL (0.55-1.02); GFR 33.75; GLUCOSE FASTING 192.0 mg/dL (65-100); OSMOLALITY SERUM 311.0 MOSM/KG (275-295)
[2024-11-25] MEDS ORDERED: DOXYCYCLINE HYCLATE 100MG IV ONE ×2 (07:58→19:40)
[2024-11-25] MEDS ORDERED: INSULIN NPH HUM/REG INSULIN HM 1,000 UNIT/10 ML UNITS SUBCUTANEO SCH (09:00)
[2024-11-25] MEDS ORDERED: EPOETIN ALFA-EPBX 10,000 UNIT/ML VIAL (Retacrit) SUBCUTANEO SCH (09:00)
[2024-11-25 09:41] LABS: ABG PH 7.369 (7.35-7.45); ABG PO2 119.7 mmHg (80-100); BICARBONATE 22.2 mmol/l (23-25)
[2024-11-25] MEDS ORDERED: SOD FERRIC GLUC COMPLX/SUCROSE 62.5 MG/5 ML AMPUL IV SCH (10:41)
[2024-11-25] MEDS ORDERED: Cyanocobalamin/Mecobalamin 1 TAB.SL SL SCH (10:41)
[2024-11-25 10:46] LABS: o2 32 %
[2024-11-26] MEDS ORDERED: MEROPENEM 500 MG/VIAL VIAL IV SCH (01:00)
[2024-11-26 04:15] VITALS: BP 145/59; O2SAT 100
[2024-11-26 07:02] LABS: BUN CREA RATIO 30.0 (7.0-25.0); CREATININE SERUM 1.35 mg/dL (0.55-1.02); GFR 39.0; GLUCOSE FASTING 158.0 mg/dL (65-100); OSMOLALITY SERUM 308.0 MOSM/KG (275-295)
[2024-11-26 07:14] VITALS: BP 138/55; O2SAT 99
[2024-11-26] MEDS ORDERED: DOXYCYCLINE HYCLATE 100MG IV ONE ×2 (07:21→20:06)
[2024-11-26] MEDS ORDERED: ACETAMINOPHEN 500 MG GEL..CAP PO ONE (07:30)
[2024-11-26] MEDS ORDERED: INSULIN NPH HUM/REG INSULIN HM 1,000 UNIT/10 ML UNITS SUBCUTANEO STA (08:00)
[2024-11-26] MEDS ORDERED: LACTOBACILLUS ACIDOPHILUS 1 CAP CAP PO SCH (09:24)
[2024-11-26 12:00] VITALS: BP 92/73; O2SAT 100
[2024-11-26] MEDS ORDERED: EPOETIN ALFA-EPBX 10,000 UNIT/ML VIAL (Retacrit) SUBCUTANEO NR (12:00)
[2024-11-26 15:08] VITALS: BP 129/68; O2SAT 100
[2024-11-26] MEDS ORDERED: NYSTATIN 15 GM,ZINC OXIDE 30 GM,SILVER SULFADIAZINE 50 GM TOP SCH (17:00)
[2024-11-26] MEDS ORDERED: INSULIN NPH HUM/REG INSULIN HM 1,000 UNIT/10 ML UNITS SUBCUTANEO SCH (17:00)
[2024-11-26 20:52] VITALS: BP 149/63; O2SAT 100
[2024-11-26 23:16] VITALS: BP 154/68; O2SAT 100
[2024-11-27] VITALS (7 sets, daily range): BP systolic 155–163; BP diastolic 62–74; O2SAT 97–100
[2024-11-27 06:53] LABS: BASO % 0.4 % (0.1-1.2); EOS # 0.47 (0.04-0.54); EOS % 3.5 % (0.7-7.0); LYMPH # 2.37 (1.18-3.74); LYMPH % 17.5 % (19.3-53.1); MEAN PLATELET VOLUME 9.20 fl (9.4-12.4); MONO # 0.87 (0.24-0.82); MONO % 6.4 % (4.7-12.5); NEUT # 9.51 (1.56-6.13); NEUT % 70.1 % (34.0-71.1); RED CELL DISTRIBUTION WIDTH 15.3 % (11.6-14.4)
[2024-11-27] MEDS ORDERED: INSULIN NPH HUM/REG INSULIN HM 1,000 UNIT/10 ML UNITS SUBCUTANEO SCH (08:00)
[2024-11-27] MEDS ORDERED: DOXYCYCLINE HYCLATE 100MG IV ONE ×2 (08:16→19:03)
[2024-11-27] MEDS ORDERED: INSULIN NPH HUMAN ISOPHANE 1,000 UNITS/10 ML UNITS SUBCUTANEO STA (17:51)
[2024-11-27] MEDS ORDERED: LORazepam 2 MG/ML VIAL IV PUSH ONE (18:15)
[2024-11-28] VITALS (10 sets, daily range): BP systolic 160–170; BP diastolic 70–83; O2SAT 97–100
[2024-11-28] MEDS ORDERED: INSULIN NPH HUM/REG INSULIN HM 1,000 UNIT/10 ML UNITS SUBCUTANEO SCH ×2 (08:00→17:00)
[2024-11-28] MEDS ORDERED: DOXYCYCLINE HYCLATE 100MG IV ONE (08:04)
[2024-11-28] MEDS ORDERED: hydrALAZINE HCL 20 MG VIAL IV PRN (11:30)
[2024-11-29] VITALS (9 sets, daily range): BP systolic 160–170; BP diastolic 67–76; O2SAT 96–99
[2024-11-29] MEDS ORDERED: FLUCONAZOLE IN NACL,ISO-OSM 200 MG/100 ML PIGGYBAG IV NR (14:00)
[2024-11-29] MEDS ORDERED: PHENAZOPYRIDINE HCL 100 MG TABLET PO SCH (17:00)
[2024-11-30] VITALS (10 sets, daily range): BP systolic 150–175; BP diastolic 70–80; O2SAT 96–99
[2024-11-30 06:11] LABS: BASO % 0.4 % (0.1-1.2); EOS # 0.38 (0.04-0.54); EOS % 3.5 % (0.7-7.0); LYMPH # 2.12 (1.18-3.74); LYMPH % 19.4 % (19.3-53.1); MEAN PLATELET VOLUME 9.10 fl (9.4-12.4); MONO # 0.75 (0.24-0.82); MONO % 6.8 % (4.7-12.5); NEUT # 7.58 (1.56-6.13); NEUT % 69.2 % (34.0-71.1); RED CELL DISTRIBUTION WIDTH 15.5 % (11.6-14.4)
[2024-11-30 06:42] LABS: ALT/SGPT 22.0 U/L (12-78); AST/SGOT 19.0 U/L (15-37); BILIRUBIN TOTAL 0.29 mg/dL (0.3-1.2); BUN CREA RATIO 22.0 (7.0-25.0); CREATININE SERUM 1.05 mg/dL (0.55-1.02); GFR 52.12; GLOBULINA 3.7 G/DL (2.4-3.5); GLUCOSE FASTING 158.0 mg/dL (65-100); OSMOLALITY SERUM 298.0 MOSM/KG (275-295)
[2024-11-30] MEDS ORDERED: MAGNESIUM SULFATE IN WATER 50 ML IV ONE (08:15)
[2024-11-30 08:51] LABS: URINE APPEARANCE Turbid; URINE BILIRRUBIN Negative (NEGATIVE); URINE BLOOD Large; URINE COLOR Dark Yellow; URINE GLUCOSE Negative (NEGATIVE); URINE KETONE Trace (NEGATIVE); URINE LEUKOCYTE Large; URINE NITRATE Positive; URINE UROBILINOGEN 1.0 E.U./dl
[2024-11-30 08:55] LABS: URINE BACTERIA 3160.7 uL (0.0-1933); URINE RBC 537.4 uL (0.0-20.8); URINE WBC 5011.2 uL (0.0-23.2)
[2024-11-30] MEDS ORDERED: NIFEDIPINE 30 MG TAB.SA.OSM PO SCH (09:00)
[2024-11-30 09:03] LABS: URINE CAST > 21.83 uL (0.0-1.40); URINE CRYSTALS FEW /HPF; URINE EPITHELIAL CELLS > 201.7 uL (0.0-38.8); URINE PROTEIN 300 (NEGATIVE); URINE YEAST MODERATE /hpf
[2024-11-30] MEDS ORDERED: FLUCONAZOLE IN NACL,ISO-OSM 2 MG/ML ML IV SCH (12:00)
[2024-11-30] MEDS ORDERED: MAGNESIUM SULFATE IN WATER 50 ML IV NR (14:30)
[2024-11-30] MEDS ORDERED: METOPROLOL SUCCINATE 25 MG TAB.SR.24H PO STA (19:12)
[2024-12-01] VITALS (8 sets, daily range): BP systolic 147–163; BP diastolic 69–76; O2SAT 92–98
[2024-12-01] MEDS ORDERED: METOPROLOL SUCCINATE 25 MG TAB.SR.24H PO SCH (09:00)
[2024-12-01] MEDS ORDERED: ASPIRIN 81 MG TABLET.EC PO SCH (09:00)
[2024-12-01] MEDS ORDERED: DOXAZOSIN MESYLATE 2 MG TABLET PO SCH (17:00)
[2024-12-03] MEDS ORDERED: EPOETIN ALFA-EPBX 10,000 UNIT/ML VIAL (Retacrit) SUBCUTANEO SCH (09:00)
== END 2024-12-01 18:49 | disposition home or self-care (01) | DRG 280 ==
LOC: ER 11:44 → MEDI 20:43 → ICU 11-21 03:36 → MEDJ 11-27 16:02
PROVIDERS: General Practice; Internal Medicine; Internal Medicine Critical Care Medicine; Internal Medicine Geriatric Medicine; Internal Medicine Infectious Disease; Specialist/Technologist, Other Nephrology; ADMIT Specialist; ATTEND Specialist
PROC: BW21ZZZ Computerized Tomography (CT Scan) of Abdomen and Pelvis (ICD-10-PCS; principal; 2024-11-18)
PROC: B246ZZZ Ultrasonography of Right and Left Heart (ICD-10-PCS; 2024-11-20)
PROC: 5A0935A Assistance with Respiratory Ventilation, Less than 24 Consecutive Hours, High Flow/Velocity Cannula (ICD-10-PCS; 2024-11-20)
PROC: 3E0F7GC Introduction of Other Therapeutic Substance into Respiratory Tract, Via Natural or Artificial Opening (ICD-10-PCS; 2024-11-20)
PROC: 4A12X4Z Monitoring of Cardiac Electrical Activity, External Approach (ICD-10-PCS; 2024-11-20)
PROC: 5A1945Z Respiratory Ventilation, 24-96 Consecutive Hours (ICD-10-PCS; 2024-11-21)
PROC: 02HV33Z Insertion of Infusion Device into Superior Vena Cava, Percutaneous Approach (ICD-10-PCS; 2024-11-21)
PROC: 5A09457 Assistance with Respiratory Ventilation, 24-96 Consecutive Hours, Continuous Positive Airway Pressure (ICD-10-PCS; 2024-11-21)
PROC: 30233N1 Transfusion of Nonautologous Red Blood Cells into Peripheral Vein, Percutaneous Approach (ICD-10-PCS; 2024-11-21)
PROC: 0BH18EZ Insertion of Endotracheal Airway into Trachea, Via Natural or Artificial Opening Endoscopic (ICD-10-PCS; 2024-11-21)
DX: I21.4 Non-ST elevation (NSTEMI) myocardial infarction (principal); A41.9 Sepsis, unspecified organism; J96.01 Acute respiratory failure with hypoxia; E87.21 Acute metabolic acidosis; N17.8 Other acute kidney failure; J81.1 Chronic pulmonary edema; I13.0 Hypertensive heart and chronic kidney disease with heart failure and stage 1 through stage 4 chronic kidney disease, or unspecified chronic kidney disease; I12.9 Hypertensive chronic kidney disease with stage 1 through stage 4 chronic kidney disease, or unspecified chronic kidney disease; N18.30 Chronic kidney disease, stage 3 unspecified; D63.8 Anemia in other chronic diseases classified elsewhere; K52.9 Noninfective gastroenteritis and colitis, unspecified; E86.0 Dehydration; E11.42 Type 2 diabetes mellitus with diabetic polyneuropathy; Z79.4 Long term (current) use of insulin; R79.89 Other specified abnormal findings of blood chemistry; E03.8 Other specified hypothyroidism; E11.65 Type 2 diabetes mellitus with hyperglycemia; I50.9 Heart failure, unspecified; E11.22 Type 2 diabetes mellitus with diabetic chronic kidney disease; I73.9 Peripheral vascular disease, unspecified; E88.09 Other disorders of plasma-protein metabolism, not elsewhere classified; E87.5 Hyperkalemia

== ENCOUNTER 2025-02-17 23:22 | Inpatient (IN) | payer OTHER ==
[~2025-02-17] VITALS: Ht 165.1 cm; Wt 99.8 kg
[~2025-02-17 23:22] MED LIST changes: +AVAPRO300 MG; +CONZIP300 MG PO; +EZALLOR SPRINKL20 MG; +FUSION PLUS CA1 EACH PO; +HUMALOG MI100 UNIT/2 SQ; +JARDIANCE25 MG; +NEURONTIN600 M1
[2025-02-18] VITALS (11 sets, daily range): BP systolic 116–154; BP diastolic 53–94; O2SAT 99–100
[2025-02-18] MEDS ORDERED: FAMOTIDINE/PF 20 MG/2 ML VIAL IV PUSH STA (00:05)
[2025-02-18] MEDS ORDERED: ASPIRIN 325 MG TABLET.EC PO STA (00:06)
[2025-02-18] MEDS ORDERED: INSULIN REGULAR, HUMAN 1,000 UNIT/10 ML UNITS IV STA ×2 (00:06→03:50)
[2025-02-18] MEDS ORDERED: NITROGLYCERIN IN 5 % DEXTROSE 50 MG/250 ML BOTTLE IV ONE (00:10)
[2025-02-18] MEDS ORDERED: FAMOTIDINE/PF 20 MG/2 ML VIAL ONE ×3 (00:11→17:49)
[2025-02-18] MEDS ORDERED: NITROGLYCERIN IN 5 % DEXTROSE 250 ML IV ONE (00:15)
[2025-02-18] MEDS ORDERED: 0.9 % SODIUM CHLORIDE 1,000 ML IV ONE (00:15)
[2025-02-18 00:43] LABS: BASO % 0.4 % (0.1-1.2); EOS # 0.14 (0.04-0.54); EOS % 1.3 % (0.7-7.0); LYMPH # 1.35 (1.18-3.74); LYMPH % 12.9 % (19.3-53.1); MEAN PLATELET VOLUME 9.50 fl (9.4-12.4); MONO # 0.57 (0.24-0.82); MONO % 5.5 % (4.7-12.5); NEUT # 8.31 (1.56-6.13); NEUT % 79.6 % (34.0-71.1); RED CELL DISTRIBUTION WIDTH 14.9 % (11.6-14.4)
[2025-02-18 01:10] LABS: INR 0.98
[2025-02-18 01:39] LABS: ALT/SGPT 45.0 U/L (12-78); AST/SGOT 27.0 U/L (15-37); BILIRUBIN TOTAL 0.31 mg/dL (0.3-1.2); BUN CREA RATIO 18.0 (7.0-25.0); CREATININE SERUM 1.98 mg/dL (0.55-1.02); GFR 24.99; GLOBULINA 3.8 G/DL (2.4-3.5); LDH 203.0 U/L (84-246); OSMOLALITY SERUM 308.0 MOSM/KG (275-295); PHOSPHOKINASE CREATININE 200.0 U/L (26-192)
[2025-02-18 01:46] LABS: GLUCOSE FASTING 474.0 mg/dL (65-100)
[2025-02-18] MEDS ORDERED: PLAVIX75 MG (05:40)
[2025-02-18] MEDS ORDERED: ATORVASTATIN CALCIUM 40 MG TABLET PO SCH (10:00)
[2025-02-18] MEDS ORDERED: FAMOTIDINE/PF 20 MG in 0.9 % SODIUM CHLORIDE 8 ML IV PUSH SCH (10:00)
[2025-02-18] MEDS ORDERED: ACETAMINOPHEN 500 MG GEL..CAP PO PRN (10:00)
[2025-02-18] MEDS ORDERED: TICAGRELOR 90 MG TABLET PO ONE ×3 (10:00→17:12)
[2025-02-18] MEDS ORDERED: ASPIRIN 81 MG TAB.CHEW PO SCH (10:00)
[2025-02-18] MEDS ORDERED: ENOXAPARIN SODIUM 100 MG/ML SYRINGE SUBCUTANEO SCH (10:01)
[2025-02-18] MEDS ORDERED: 0.9 % SODIUM CHLORIDE 1,000 ML IV SCH (10:15)
[2025-02-18] MEDS ORDERED: INSULIN LISPRO 1,000 UNIT/10 ML UNITS SUBCUTANEO PRN (10:15)
[2025-02-18] MEDS ORDERED: DEXTROSE 50 % IN WATER 0.5 G/ML DISP.SYRIN IV PRN (10:15)
[2025-02-18] MEDS ORDERED: TICAGRELOR 90 MG TABLET PO SCH (17:00)
[2025-02-18] MEDS ORDERED: ACETAMINOPHEN 500 MG GEL..CAP PO ONE (19:22)
[2025-02-18] MEDS ORDERED: INSULIN LISPRO 1,000 UNIT/10 ML UNITS SUBCUTANEO ONE (22:29)
[2025-02-19] VITALS (15 sets, daily range): BP systolic 101–161; BP diastolic 51–85; O2SAT 97–100
[2025-02-19] MEDS ORDERED: INSULIN LISPRO 1,000 UNIT/10 ML UNITS SUBCUTANEO ONE (00:01)
[2025-02-19] MEDS ORDERED: ACETAMINOPHEN 500 MG GEL..CAP PO ONE ×2 (02:43→08:02)
[2025-02-19] MEDS ORDERED: TICAGRELOR 90 MG TABLET PO ONE (04:55)
[2025-02-19 07:26] LABS: CHOL HDL RATIO 2.4 (0-5.0); HDL 60.0 mg/dl (40-60); LDL 61.0 mg/dl (0-130); TSH 4.63 uIU/mL (0.358-3.74); VLDL 22.0 (0-39)
[2025-02-19] MEDS ORDERED: FAMOTIDINE/PF 20 MG/2 ML VIAL ONE (08:02)
[2025-02-19] MEDS ORDERED: AMLODIPINE BESYLATE 5 MG TABLET PO SCH (09:00)
[2025-02-19] MEDS ORDERED: METOPROLOL SUCCINATE 25 MG TAB.SR.24H PO SCH (09:00)
[2025-02-19] MEDS ORDERED: LISINOPRIL 5 MG TABLET PO SCH (09:00)
[2025-02-19 11:41] LABS: COVID-19 AG NEGATIVE (NEGATIVE)
[2025-02-20] VITALS (21 sets, daily range): BP systolic 72–182; BP diastolic 46–84; O2SAT 98–100
[2025-02-20] MEDS ORDERED: LEVOTHYROXINE SODIUM 75 MCG TABLET PO SCH (06:00)
[2025-02-20] MEDS ORDERED: PANTOPRAZOLE SODIUM 40 MG TABLET.DR PO SCH (11:53)
[2025-02-20] MEDS ORDERED: MORPHINE SULFATE 2 MG/ML SYRINGE IV PRN (12:00)
[2025-02-20] MEDS ORDERED: INSULIN LISPRO 1,000 UNIT/10 ML UNITS SUBCUTANEO STA (13:10)
[2025-02-20] MEDS ORDERED: INSULIN GLARGINE,HUM.REC.ANLOG 1,000 UNITS/10 ML UNITS SUBCUTANEO STA (13:10)
[2025-02-20] MEDS ORDERED: INSULIN LISPRO 1,000 UNIT/10 ML UNITS SUBCUTANEO SCH (17:00)
[2025-02-21] VITALS (24 sets, daily range): BP systolic 136–176; BP diastolic 58–100; O2SAT 95–100
[2025-02-21] MEDS ORDERED: METOPROLOL SUCCINATE 50 MG TAB.SR.24H PO SCH (09:00)
[2025-02-21] MEDS ORDERED: INSULIN GLARGINE,HUM.REC.ANLOG 1,000 UNITS/10 ML UNITS SUBCUTANEO SCH (09:00)
[2025-02-21 12:49] LABS: COVID-19 AG NEGATIVE (NEGATIVE)
[2025-02-21] MEDS ORDERED: BUTALB/ACETAMINOPHEN/CAFFEINE 1 TAB TABLET PO PRN (15:00)
[2025-02-21 23:11] LABS: URINE APPEARANCE Cloudy; URINE BILIRRUBIN Negative (NEGATIVE); URINE BLOOD Moderate; URINE COLOR Yellow; URINE KETONE Negative (NEGATIVE); URINE LEUKOCYTE Negative; URINE NITRATE Negative; URINE PROTEIN >=1000 (NEGATIVE); URINE UROBILINOGEN 0.2 E.U./dl
[2025-02-21 23:14] LABS: URINE BACTERIA 59.4 uL (0.0-1933); URINE CAST 10.62 uL (0.0-1.40); URINE EPITHELIAL CELLS 34.3 uL (0.0-38.8); URINE RBC 17.1 uL (0.0-20.8); URINE WBC 10.2 uL (0.0-23.2)
[2025-02-21 23:35] LABS: URINE GLUCOSE 100 MG/DL (NEGATIVE)
[2025-02-22] VITALS (11 sets, daily range): BP systolic 142–174; BP diastolic 59–90; O2SAT 97–100
[2025-02-22 07:40] LABS: BASO % 0.3 % (0.1-1.2); EOS # 0.09 (0.04-0.54); EOS % 1.2 % (0.7-7.0); LYMPH # 1.53 (1.18-3.74); LYMPH % 19.6 % (19.3-53.1); MEAN PLATELET VOLUME 9.80 fl (9.4-12.4); MONO # 0.74 (0.24-0.82); MONO % 9.5 % (4.7-12.5); NEUT # 5.37 (1.56-6.13); NEUT % 68.8 % (34.0-71.1); RED CELL DISTRIBUTION WIDTH 15.4 % (11.6-14.4)
[2025-02-22 08:09] LABS: BUN CREA RATIO 12.0 (7.0-25.0); CREATININE SERUM 1.63 mg/dL (0.55-1.02); GFR 31.28; GLUCOSE FASTING 90.0 mg/dL (65-100); OSMOLALITY SERUM 285.0 MOSM/KG (275-295)
[2025-02-22] MEDS ORDERED: GUAIFENESIN 200 MG/10 ML BLIST.PACK PO PRN (08:15)
[2025-02-22] MEDS ORDERED: BENZONATATE 100 MG CAPSULE PO SCH (09:00)
[2025-02-23] MEDS ORDERED: INSULIN GLARGINE,HUM.REC.ANLOG 1,000 UNITS/10 ML UNITS SUBCUTANEO SCH (09:00)
== END 2025-02-22 15:03 | disposition designated cancer center or children's hospital (05) | DRG 281 ==
LOC: ER 23:22 → ICU-2 02-18 10:08 → ICU 02-20 18:05
PROVIDERS: General Practice; Internal Medicine; Specialist/Technologist, Other Nephrology; ADMIT Internal Medicine; ATTEND Internal Medicine
PROC: B246ZZZ Ultrasonography of Right and Left Heart (ICD-10-PCS; principal; 2025-02-20)
PROC: 02HV33Z Insertion of Infusion Device into Superior Vena Cava, Percutaneous Approach (ICD-10-PCS; 2025-02-20)
DX: I21.4 Non-ST elevation (NSTEMI) myocardial infarction (principal); I13.0 Hypertensive heart and chronic kidney disease with heart failure and stage 1 through stage 4 chronic kidney disease, or unspecified chronic kidney disease; N17.8 Other acute kidney failure; I12.9 Hypertensive chronic kidney disease with stage 1 through stage 4 chronic kidney disease, or unspecified chronic kidney disease; E11.22 Type 2 diabetes mellitus with diabetic chronic kidney disease; N18.30 Chronic kidney disease, stage 3 unspecified; Z79.4 Long term (current) use of insulin; M79.7 Fibromyalgia; I24.9 Acute ischemic heart disease, unspecified; E11.65 Type 2 diabetes mellitus with hyperglycemia; I50.9 Heart failure, unspecified; D64.9 Anemia, unspecified; E05.80 Other thyrotoxicosis without thyrotoxic crisis or storm; E11.40 Type 2 diabetes mellitus with diabetic neuropathy, unspecified